=== PATIENT | female | born 1975 | race Caucasian/White ===

== ENCOUNTER 2017-08-25 15:24 | Inpatient (IN) | payer OTHER ==
[~2017-08-25] VITALS: Ht 172.7 cm; Wt 62.6 kg
[~2017-08-25 15:24] MED LIST: ATIVAN1 MG PO; L-METHYLFOLATE15 M1 PO; SEROQUEL200 MG PO
[2017-08-25] MEDS ORDERED: GRALISE600 MG PO (17:12)
[2017-08-25] MEDS ORDERED: ADDERALL 20 MG20 MG PO (17:12)
[2017-08-26] MEDS ORDERED: LAMICTAL200 MG PO (08:26)
[2017-08-26] MEDS ORDERED: ZYPREXA5 MG PO (08:27)
[2017-08-26] MEDS ORDERED: TRAMADOL HCL50 MG PO (08:28)
--- NOTE | 2017-08-26 08:42 | NUR ---
08/25/17 1715 MET WITH PATIENT AND GUEST TODAY FOR PREOP VISIT. PATIENT WILL BE HAVING SURGERY FOR A TOTAL LEFT KNEE REPLACEMENT ON 09/06/17. PATIENT APPEARS VERY ANXIOUS DURING PREOP VISIT. SHE WOULD LIKE DC PLANNING TO MAKE ARRANGEMENTS FOR A FRONT WHEELED WALKER WHILE SHE IS IN THE HOSPITAL. SHE WILL LOOK INTO A SHOWER CHAIR/BENCH AND HAND HELD SHOWER HEAD FOR HER TUB/SHOWER COMBINATION. PATIENT IS UNSURE OF HER PLANS FOR DC. HER HOME HAS 2 STEPS INTO IT AND MULTIPLE STEPS INSIDE TO THE UPPER LEVEL. SHE REPORTS EVERYTHING SHE NEEDS IS ON THE MAIN LEVEL OF THE HOME EXCEPT HER BEDROOM. A GENTLEMAN NAMED CARISSA ACCOMPANIED HER TODAY AND SAID HE WAS PLANNING ON STAYING WITH HER AND TAKING HER TO HER PHYSICAL THERAPY APPOINTMENTS. SHE WAS INSTRUCTED TO CONTACT DR DURAND OFFICE AND ASK ABOUT IF SHE IS TO HAVE A PREOP PHYSICAL THERAPY APPOINTMENT AND ATTEND THE JOINT BOOTCAMP.
[2017-09-06] MEDS ORDERED: LAMICTAL200 MG PO (11:28)
--- NOTE | 2017-09-06 13:23 | NUR ---
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 PARENTS WITH HER, SEEM VERY SUPPORTIVE. PT REQUESTED PRAYER, WILL FOLLOW NEEDED
--- NOTE | 2017-09-06 13:25 | NUR ---
09/06/17 1325 Verenice Elmore 1248 RESP EVEN AND UNLABORED, PT SLEEPING, MAINTAINING AIRWAY ON 6L VIA MASK. 1305 PT WOKE UP, O2 REMOVED. PT REPORTS "LITTLE BIT OF PAIN." DENIENS NAUSEA. 1320 PT SLEEPING, SB NOTED WITH ARRHYTHMIA.
--- NOTE | 2017-09-06 14:50 | NUR ---
PATIENT TO FLOOR FROM PACU. AWAKE, ALERT AND ORIENTED. PATIENT DENIES NAUSEA AT THIS TIME AND REPORT 5/10 ON THE LEFT KNEE. DRESSING ON LEFT KNEE D/C/I. CRYO CUFF ON, HEEL PROTECTOR AND HOLLY HOSE IN PLACE. PATIENT REPORTS BEING HUNGRY, CLEAR LIQUID PROVIDED. PATIENT TOLERATED WELL. PATIENT EXPRESSED INTEREST TO ADVANCE DIET. CHICKEN NODDLE SOUP ORDER. PATIENT WAS MEDICATED FOR PAIN. SCHEDULE ZOFRAN ADMINISTERED. IV SITE PATENT AND FLUID INFUSING. PATIENT REPORT MUNBNESS AND TINGLING IN BOTH LOWER EXTREMITIES, BUT ABLE TO FEEL WHEN TOUCHING. PERIPHERAL PULSE PALPABLE AND SKIN IN BLE PINK, GOOD CAP REFILL.CALL LIGHT & PERSONAL BELONGING WITHIN REACH. WILL CONTINUE TO MONITOR.
--- NOTE | 2017-09-06 15:18 | NUR ---
PATIENT RESTING IN BED. VITALS ARE STABLE, PULSE NIECY 46-49, AND NON-SYMPTOMATIC WITH THIS. INTRODUCED SELF CHARGE NURSE AND ASKED IF PATIENT HAD NEEDS. PATIENT DENIES NEEDS AT THIS TIME. FAMILY IN ROOM WITH PATIENT.
--- NOTE | 2017-09-06 15:42 | NUR ---
INTRODUCED SELF TO PATIENT CHARGE NURSE. PATIENT DENIES ANY NEEDS AT THIS TIME, IS A FRESH POST OP THIS AFTERNOON.
--- NOTE | 2017-09-06 16:10 | NUR ---
PATIENT WAS UP WALKING WITH PHYSICAL THERAPIST IN THE HALLWAY. TOLERATED WELL. PATIENT WAS ASSISTED TO BEDSIDE COMMODE AND WAS NOT TO VOID PATIENT REPORT PAIN 7/10 KNEE PAIN AND SHARP PAIN AND PRESSURE IN THE SUPRAPUBIC REGION. PATIENT WAS BLADDER SCANNED AND HAD MORE 999ML OF URINE IN THE BLADDER. MCNAMARA WAS PLACED PER MD ORDER. 1750ML OF URINE OUT UPON INSERTION. PATIENT REPORTED RELIEF OF PAIN AND PRESSURE AFTER DRAINING THE BLADDER. PATIENT TOLERATE FOOD WELL, DENIED ANY NAUSEA. CALL LIGHT AND PERSONAL BELONGING WITHIN REACH.
--- NOTE | 2017-09-06 16:50 | NUR ---
patient sitting up in bed. fresh ice water given. no other needs at this time.
[2017-09-06] MEDS ORDERED: B-122500 MCG PO (17:34)
[2017-09-06] MEDS ORDERED: L-METHYLFOLATE15 M1 PO (17:35)
--- NOTE | 2017-09-06 17:52 | NUR ---
PATIENT RESTING IN BED WITH EYES CLOSE. FATHER IN ROOM. FRESH ICE WATER GIVEN. ICE IN CRYO. CALL BUTTON IN REACH. NO OTHER NEEDS AT THIS TIME.
--- NOTE | 2017-09-06 18:41 | NUR ---
PATIENT HAD DONE WELL. WAS UP AMBULATING WITH PHISICAL THERAPIST ONCE. PAIN CONTROL WITH DILAUDID AND TORADOL. PATIENT TOLERATED FOOD WELL AND ADVANCED TO REGULAR DIET. MCNAMARA WAS PLACED DUE TO URINARY RETENTION. CRYO CUFF TO LEFT KNEE. HOLLY HOSE AND HEEL PROTECTOR IN PLACE. IV ABX AND FLUID INFUSING WELL. DRESSING ON THE LEFT KNEE D/C/I JODI WRAP. CMS INTACT, PATIENT STILL REPORTED MILD NUMBNESS AND TINGLING.
--- NOTE | 2017-09-06 19:47 | NUR ---
PATIENT CALLED AND REQUESTED PAIN MED FOR 7/10 LEFT KNEE PAIN. PATIENT WAS MEDICATED. DENIES NAUSEA. IV FLUID INFUSING. CALL LIGHT WITHIN REACH.
--- NOTE | 2017-09-06 20:08 | NUR ---
RECEIVED REPORT FROM DAY SHIFT RN. PATIENT IS RESTING IN BED WATCHING TV. PATIENT RATES PAIN AT A 4/10. PATIENT DENIES ANY NAUSEA. PATIENT HAS FAMILY IN THE ROOM. PATIENT DENIES ANY NEEDS AT THIS TIME. CALL LIGHT IN REACH.
--- NOTE | 2017-09-06 20:35 | NUR ---
PATIENT ASSESMENT COMPLETED. PATIENT HAS BEEN ADVANCED TO A REG DIET AND IS TOLERATING IT WELL. NO NAUSEA NOTED. PATIENT HAS A PULSE OX IN PLACE AND IS ON RA. PULSE OX READINGS ARE WNL. PATIENT HAD A MCNAMARA PLACED FOR RETENTION ON DAY SHIFT. PATIENTS OUTPUT IS CONCENTRATED AND OUTPUT IS QS. PATIENT HAS HEEL PROTECTOR AND SCDS IN PLACE. PATIENT HAS CRYO APPLIED TO LEFT KNEE, ICE IN CRYO IS REFILLED. PATIENTS DRESSING ON LEFT KNEE IS C/D/I, NO DRAINGE NOTED. PATIENT IS AAOX3. PATIENT HAS SCOPALAMINE PATCH BEHIND RIGHT EAR. PATIENT HAS NO COMMENTS, QUESTIONS, OR CONCERNS AT THIS TIME. PATIENT HAS FAMILY AT THE BEDSIDE. NO FURTHER NEEDS NOTED AT THIS TIME. CALL LIGHT IN REACH.
--- NOTE | 2017-09-06 21:25 | NUR ---
V/S AND I&O TAKEN. NOTICED HR IS LOW IN 45-47 WHEN ASLEEP AND WHEN AWAKE AND TALKING WENT UP TO 77. NURSE NOTIFIED. CHECKED CRYO IS STILL FILLED WITH ICE.
--- NOTE | 2017-09-06 23:55 | NUR ---
PATIENTS 0000 MEDICATIONS GIVEN PER ORDER. PATIENT RATES PAIN AT A 4/10. PATIENT DENIES THE NEED FOR PAIN MEDICATION AT THIS TIME. PATIENT DENIES ANY NAUSEA. PATIENT CONTINUES TO WEAR, SCDS, HEEL PROTECTS, AND CRYO APPLIED TO THE LEFT KNEE. CRYO SUFFICIENT ICE. PATIENT DENIES ANY FURTHER NEEDS. CALL LIGHT IN REACH.
--- NOTE | 2017-09-07 01:39 | NUR ---
PATIENTS SCHEDULED PAIN MEDICATION GIVEN PER ORDER. PATIENT RATES PAIN AT A 4/10. PATIENTS CRYO HAS SUFFICIENT ICE. PATIENT CONTINUES TO WEAR SCDS, HEEL PROTECTORS AND CRYO APPLIED TO LEFT KNEE. NO FURTHER NEEDS AT THIS TIME. CALL LIGHT IN REACH.
--- NOTE | 2017-09-07 09:40 | NUR ---
PATIENT RESTING IN BED WITH EYES CLOSED. MOTHER IN ROOM. PATIENT WOULD LIKE TO TO DO AM CARE LATER. FRESH ICE WATER GIVEN. ICE IN CRYO. CALL BUTTON IN REACH. NO OTHER NEEDS AT THIS TIME.
--- NOTE | 2017-09-07 11:03 | NUR ---
ALL NOTES AND ASSESSMENTS PRIOR TO THIS TIME ARE CHARTED ON THE PAPER CHART. PT UP WALKING IN HALLWAY WITH PHYS. THER. AND MOTHER. PT STATES SHE IS DOING WELL AND RATES PAIN AT A PT STATED TOLERABLE LEVEL OF 6\10.
--- NOTE | 2017-09-07 11:32 | NUR ---
Pt called to say she was painful after phys. ther. administered 2 tabs norco. Rates 7\10. Drainage appears the same as earlier. pt up to restroom.
--- NOTE | 2017-09-07 13:00 | NUR ---
PATIENT TO BATHROOM TO CHAIR WITH STANDBY ASSIST WITH WALKER. ICE IN CRYO. FRESH ICE WATER GIVEN. WARM BLANKET GIVEN. PATIET STATES THAT HER PAIN IS AT A 7. RN NOTIFIED. CALL BUTTON IN REACH. NO OTHER NEEDS AT THIS TIME.
--- NOTE | 2017-09-07 14:32 | NUR ---
PT SITTING UP IN CHAIR. PT STATES LAST DOSE OF PAIN MEDICATION WORKED WELL. AND NOW RATES PAIN 3\10.
--- NOTE | 2017-09-07 14:57 | NUR ---
PT RESTING IN CHAIR, WAITING FOR P.T. HER DAD HAS NOT LEFT HER SIDE! SHE IS ALERT AND ORIENTED. NOT MUCH SLEEP LAST NIGHT-SHE MENTIONED THAT SHE COULD USE A NAP. GOOD VISIT WITH PT AND DAD. TRISH FROM P.T.IN. EXTENDED A BLESSING. I WILL FOLLOW NEEDED
--- NOTE | 2017-09-07 15:49 | NUR ---
WASHED PT HAIR. AND BED BATH
--- NOTE | 2017-09-07 17:43 | NUR ---
PT RESTING WITH EYES CLOSED. DECLINED PAIN MEDICATION ATT.
--- NOTE | 2017-09-07 20:12 | NUR ---
RECEIVED REPORT FROM DAY SHIFT RN. PATIENT ASSISTED TO THE RESTROOM. PATIENT IS A SBA W/FWW. PATIENT IS BACK IN BED COMPLAINING OF NAUSEA. PLACED CALL TO DR. DURAND. RECEIVED VERBAL ORDER, VERIFIED USING THE READBACK METHOD. PATIENT GIVEN PRN NAUSEA MEDICATION PER ORDER. PATIENT DENIES ANY FURTHER NEEDS CALL LIGHT IN REACH.
--- NOTE | 2017-09-07 20:45 | NUR ---
PATIENT ASSESMENT COMPLETED. PATIENT STATES HER NAUSEA HAS SUBSIDED. PATIENT RATES PAIN AT AN 8/10. PATIENT GIVEN SHCEDULED PAIN MEDICATION PER ORDER. PATIENT GIVEN SHCEDULED PAIN MEDICATION PER ORDER. PATIENTS CRYO REFILLED PER ORDER. PATIENTS EVENING MEDICATIONS GIVEN PER ORDER. PATIENT HAS SCDS, HEEL PROTECTORS, AND CRYO IN PLACE. CRYO REFILLED WITH ICE PER ORDER. PATIENTS DRESSSING ON HER LEFT KNEE HAS DRAINAGE NOTED ON THE LOWER END. THE DRAINAGE IS DRY AND IS NOT NEW SINCE RECIEVING REPORT FROM DAY SHIFT RN. PATIENT IS SL AND IV FLUSHES WELL. PATIENT DENIES ANY FURTHER NEEDS AT THIS TIME. CALL LIGHT IS WITHIN REACH.
--- NOTE | 2017-09-07 22:10 | NUR ---
PATIENT IS RESTING IN BED WATCHING TV. PATIENT RATES PAIN AT A 01/27/. PATIENT STATED "IT IS MUCH IMPROVED" PATIENT DENIES THE NEED FOR ANY PAIN MEDICATION AT THIS TIME. PATIENT DENIES ANY NAUSEA. PATIENT DENIES ANY FURTHER NEEDS AT THIS TIME. PATIENT CONTINUES TO WEAR SCDS, HEEL PROTECTORS, CRYO APPLED TO LEFT KNEE. CRYO HAS SUFFICIENT ICE. PATIENT DENIES ANY FURTHER NEEDS, CALL LIGHT IN REACH.
--- NOTE | 2017-09-08 01:30 | NUR ---
PATIENT ASSITED TO THE RESTROOM A SBA W/FWW. PATIENT DOES WELL WITH AMBULATION. PATIENT IS NOW BACK IN BED RESTING. PATIENT HAS SCDS AND HEEL PROTECTORS IN PLACE. PATIENTS CRYO REFILLED. NO NEW DRAINAGE NOTED ON BANDAGE. PATIENTS 0200 MEDICATIONS GIVEN PER ORDER. PATIENT RATES PAIN AT A 6/10. PATIENT RECEIVED SCHEDULED PAIN MEDICATION PER ORDER. PATIENT DENIES ANY NEED FOR PRN PAIN MEDICATION AT THIS TIME. PATIENT DENIES ANY NAUSEA. PATIENT DENIES ANY FURTHE NEEDS CALL LIGHT IN REACH.
--- NOTE | 2017-09-08 02:41 | NUR ---
PATIENTS ICE WATER REFILLED. PATIENT RATES PAIN AT A 4/10. PATIENT DENIES THE NEED FOR ANY PAIN MEDICATION AT THIS TIME. CALL LIGHT IN REACH.
--- NOTE | 2017-09-08 04:21 | NUR ---
AMBULATED PATIENT AROUND NURSE'S STATION X1. PATIENT IS BACK IN BED. CALL LIGHT WITHIN REACH. PATIENT C/O PAIN 6.5/10, NURSE NOTIFIED FOR PAIN MEDS. CRYO REFILLED.
--- NOTE | 2017-09-08 04:53 | NUR ---
PATIENT UP AND AMBULATED X2 LAPS IN THE HALLWAY WITH TAVERN KEEPER. PATIENT COMPLAINS OF FEELING "LIGHT HEADED WITH AMBULATION" PATIENT DENIED FEELING DIZZY. PATIENT COMPLAINS OF 6/10 PAIN IN HER RIGHT KNEEE. PATIENT GIVEN PRN PAIN MEDICATION. PATIENT IS NOW BACK IN BED RESTING SCDS IN PLACE. CRYO APPLIED TO LEFT KNEE. NO NEW DRAINAGE NOTED. NO FURTHER NEEDS CALL LIGHT IN REACH.
--- NOTE | 2017-09-08 05:27 | NUR ---
PATIENT CONTINUES TO RATE PAIN AT A 6/10. PATIENT GIVEN PRN PAIN MEDICATION PER ORDER. PATIENT DENIES ANY NAUSEA. PATIENT DENIES ANY FURTHER NEEDS. CALL LIGHT IN REACH.
--- NOTE | 2017-09-08 05:28 | NUR ---
PATIENT RESTED ON AND OFF THROUGHOUT THE SHIFT. PATIENT IS A SBA W/FWW. PATIENT TOLERATES AMBULATION WELL. PATIENT IS SL AND IV FLUSHES WELL. PATIENT IS ON A REG DIET AND IS TOELRATING IT WELL. PATIENT HAS HEEL PROTECTORS, SCDS, AND TEDHOSE IN PLACE. PAITENT HAS CRYO APPLIED TO LEFT KNEE. PATIENT HAS A MEDIUM AMOUNT OF DRAINAGE NOTED ON THE LOWER ASPECT OF THE DRESSING. NO NEW DRAINGE SINCE START OFF THE SHIFT. PATIENT HAS SCHEDULED PAIN MEDICATION, AND RECIEVED X2 PRN PAIN MEDICATION. PATIENT RECEIVED X1 PRN PAIN MEDICATION PER ORDER. PATIENT IS AAO X3 AND USES CALL LIGHT APPROPRIATELY.
--- NOTE | 2017-09-08 06:38 | NUR ---
PATIENT RATES PAIN AT A 4/10. PATIENT STATED "THAT SECOND PAIN MEDICATION DID THE TRICK" PATIENT DENIES THE NEED FOR FURTHER PAIN MEDICATION AT THIS TIME. PATIENT DENIES ANY NAUSEA. PATIENT IS RSETING IN BED. PATIENT HAS SCDS, TEDHOSE, AND CRYO APPLIED TO LEFT KNEE. CRYO REFILLED WITH ICE PER ORDER. PATIENTS DRESSING HAS DRAINAGE NOTED FROM THE BEGINNING OF THE SHIFT BUT NO NEW DRAINAGE. PATIENT ALSO HAS HEEL PROTECTORS IN PLACE. PATIENT IS SL.
--- NOTE | 2017-09-08 07:10 | NUR ---
REPORT RECEIVED FROM DEE DEE RINCON. PT ASLEEP AT THE TIME OF REPORT. DID NOT WAKE WHILE TALKING
--- NOTE | 2017-09-08 07:53 | NUR ---
PT AWAKE AND TALKING TO FRIEND IN ROOM. EATING BREAKFAST. DOZING OFF AND ON. RATES PAIN 4/10 ADMINISTERED PRN DILAUDID AND MORNING MEDS. PT HOPING TO GO HOME TODAY. DRESSING INTACT AND SAME DRAINAGE YESTERDAY
--- NOTE | 2017-09-08 08:27 | NUR ---
PT UP TO THE SIDE OF THE BED TO EAT BKF, PT ABLE TO MOVE ABOUT IN THE BED WITHOUT ASSISTANCE, SHE IS WEARING CRY-CUFF.
--- NOTE | 2017-09-08 08:49 | NUR ---
CRYO CUFF REFILLED WITH ICE AT THIS TIME. PT HAS NOT ATE MUCH OF HER BKF THIS AM. SHE HAS BEEN SLEEPING. PT DAVID REMAINS AT THE BEDSIDE.
--- NOTE | 2017-09-08 09:27 | OR ---
[facility] [address] [place], [place] [address] Signed DATE OF OPERATION: 09/06/2017 SURGEON: Sherri Wallace MD PREOPERATIVE DIAGNOSIS: Posttraumatic degenerative joint disease, left knee. POSTOPERATIVE DIAGNOSIS: Posttraumatic degenerative joint disease, left knee. PROCEDURES PERFORMED: 1. Left total knee arthroplasty with computer navigation. 2. Hardware removal, deep. SALES PROJECT ENGINEER: SMILEY Dorsey was present for the entire surgery and was critical for positioning, retraction, and wound closure. ANESTHESIA: Spinal with sedation. TOURNIQUET TIME: 80 minutes. IMPLANTS: Advance Triathlon size 4 with an 11 mm insert and a 38 mm patella. Two screws were removed from the tibia. BRIEF HISTORY: Michell is a 41-year-old female with several traumas to her knee including a patellar fracture and several injuries resulting in ACL reconstruction. She has had multiple arthroscopies on top of that. Risks, benefits, and alternatives of operative treatment were discussed with her and she elected to proceed. DESCRIPTION OF PROCEDURE: Once consent was obtained, she was taken to the operating room. After adequate anesthesia, she was placed on operating table. All downside pressure points well padded. Hip bump was placed. The left leg was placed in well-padded proximal thigh tourniquet. Electronically Signed By: SHERRI WALLACE MD 09/08/17 0927 PATIENT NAME: MICHELL YOUNG OPERATIVE REPORT DATE OF : 73 PHYSICIAN: SHERRI WALLACE MD REPORT #: [id number] REPORT IS CONFIDENTIAL AND NOT TO BE RELEASED WITHOUT AUTHORIZATION [facility] [address] [place], [place] [address] Signed The leg was prepped and draped in a standard sterile fashion and exsanguinated using Esmarch bandage. Tourniquet inflated to 250 mmHg. Her prior incision from the patella and tibial tuberosity was incised longitudinally and extended proximally about 3 inches. The subcutaneous tissue was incised. Median parapatellar arthrotomy was performed. The infrapatellar fat pad was excised. The MCL was elevated, sleeve around the posterior medial corner. The medial meniscus was absent. Lateral meniscus was torn and was resected. The ACL was torn. The knee was flexed. Navigation guide was pinned to the distal femur and the femur was registered with the computer. The distal femoral cutting guide was then pinned and distal femoral cut was made. Osteophytes were removed as we went. The distal femur sized to a 4. The AP cutting block was then pinned in line with the epicondylar axis. Anterior, posterior, chamfer cuts were made. The attention was turned to proximal tibia. The navigation guide was pinned to the proximal tibia and the tibia was registered with the computer. The cutting block was then set per the computer and the cut was made with care taken to protect the patellar tendon and MCL. The bone was removed as were any meniscal remnants. Posterior osteophytes were removed off the femur and posterior release was performed. Flexion-extension gaps were then sized and found to be symmetric at 11 mm. The trials were then positioned. The knee taken through range of motion and found to be stable. The patella was cut, sized and drilled for 38 mm patella. The screw in the patella was not found. The tibia was completed next using the keel punch. However, the 2 screws in the tibia were in the way we did have to remove those. A little bit of bone had to be resected to remove the blacktop paver operator. The bone was then pulse lavaged and packed with a dry Ray-Tatiana. Cement was mixed and reached proper consistency, placed on all implants and bone surfaces. Tibia was impacted in position first followed by the polyethylene. All excess cement was removed. The femur was then impacted into position. Again, all excess cement was removed. The knee was extended and excellently loaded. Patella was clamped into position again, any remaining cement was removed. The cement was allowed to harden for 12 minutes and then the knee was flexed and the remaining cement was removed. The periarticular soft tissues were injected with ropivacaine Toradol mixture. The knee was pulse lavaged at intervals throughout the procedure. A total of 3 L antibiotic irrigation was used. The arthrotomy was then closed using #2 Stratafix and the subcutaneous tissue then one Stratafix, skin with stefan and dressed with Mepilex Ag dressing. ABDs were placed and the knee was wrapped with an Wagner wrap. She was awakened and taken to recovery room in satisfactory condition. All sponge, needle, and instrument counts were correct. Sherri Wallace MD Electronically Signed By: SHERRI WALLACE MD 09/08/17 0927 PATIENT NAME: MICHELL YOUNG OPERATIVE REPORT DATE OF : 73 PHYSICIAN: SHERRI WALLACE MD REPORT #: [id number] REPORT IS CONFIDENTIAL AND NOT TO BE RELEASED WITHOUT AUTHORIZATION [address] [address] Signed [facility] /[id number] Electronically Signed By: SHERRI WALLACE MD 09/08/17 0927 PATIENT NAME: MICHELL YOUNG OPERATIVE REPORT DATE OF : 73 PHYSICIAN: SHERRI WALLACE MD REPORT #: [id number] REPORT IS CONFIDENTIAL AND NOT TO BE RELEASED WITHOUT AUTHORIZATION
[2017-09-08] MEDS ORDERED: XARELTO10 MG PO (09:31)
[2017-09-08] MEDS ORDERED: HYDROCODON-ACE1 EA11 PO (09:31)
[2017-09-08] MEDS ORDERED: NUCYNTA50 MG PO (09:32)
[2017-09-08] MEDS ORDERED: MILK OF MA400 MG/5 M PO (09:33)
--- NOTE | 2017-09-08 10:31 | NUR ---
GROUND WOOD SUPERVISOR CALLED FOR PT IN OFFICE. PT WAS HAVING INCREASED PAIN ON THE EXERCISE BIKE. ADMINISTERED 2 NORCO. PT STATES PAIN WAS WELL CONTROLLED 4\10 PRIOR TO BENDING IT. A
--- NOTE | 2017-09-08 11:34 | NUR ---
PT UP TO RESTROOM. EDUCATION GIVEN. PT SLEEPY SO SIGNIFICANT OTHER WAS GIVEN MOST OF EDUCATION AND INSTRUCTIONS. DRESSED WOUND AGAIN AND PROVIDED INSTRUCTIONS ON REDRESSING. PT GIVEN SCRIPTS. PT VERBALIZED UNDERSTANDING. HAD SHOWER AND REDRESSED. PAIN WELL CONTROLLED ATT.
--- NOTE | 2017-09-08 14:07 | NUR ---
PT PLANNING ON BEING DC'D TODAY. SHE SEEMS TO HAVE DONE WELL WITH P.T. SHE LIVES IN [facility], AND IS CONCERNED THAT SHE IS GOING TO HAVE PT. THERE. CONFIRMED THAT IS SET, GAVE BLESSING
--- NOTE | 2017-09-15 08:19 | DS ---
[facility] [address] [place], [place] [address] Signed ADMISSION DATE: 09/06/2017 DISCHARGE DATE: 09/08/2017 ADMISSION DIAGNOSIS: Posttraumatic degenerative joint disease, left knee. POSTOPERATIVE DIAGNOSIS: Posttraumatic degenerative joint disease, left knee. PROCEDURE PERFORMED DURING THIS HOSPITALIZATION: Left total knee arthroplasty. BRIEF HISTORY: Delvin is a 41-year-old female with several fractures in her knee. She had undergone ACL reconstruction as well and developed subsequent degenerative changes. Risks and benefits of the operative treatment were discussed with her and she elected to proceed. DESCRIPTION OF PROCEDURE: Once consent was obtained, she was taken to the operating room. After adequate anesthesia, she underwent the above-named procedure. She tolerated this well. She was taken to the recovery room and subsequently to the orthopedic floor. She was placed on oral pain medications of tapentadol 100 mg q.6 hours and [place]. She did well with pain control. She did have some nausea when she got up. She had no emesis, however. She was able to perform physical therapy quite well. She was able to go up and down the stairs, up and down the hallway by the day of discharge. She had a good safety profile throughout. DVT prophylaxis was provided using SCDs, TEDs, and Xarelto 10 mg p.o. daily. She will be discharged to home with the above medications and outpatient physical therapy. She will follow up with me in 7 to 10 days or sooner should she have problems. Drew Wallace MD BA/MODL Electronically Signed By: DREW WALLACE MD 09/15/17 0819 PATIENT NAME: DELVIN YOUNG DISCHARGE SUMMARY DATE OF : 73 PHYSICIAN: DREW WALLACE MD REPORT #: [id number] REPORT IS CONFIDENTIAL AND NOT TO BE RELEASED WITHOUT AUTHORIZATION [address] [place], [place] [address] Signed /[id number] Electronically Signed By: DREW WALLACE MD 09/15/17 0819 PATIENT NAME: DELVIN YOUNG DISCHARGE SUMMARY DATE OF : 73 PHYSICIAN: DREW WALLACE MD REPORT #: [id number] REPORT IS CONFIDENTIAL AND NOT TO BE RELEASED WITHOUT AUTHORIZATION
== END 2017-09-08 11:40 | disposition home or self-care (01) | DRG 470 ==
LOC: DSVR 09-06 06:55 → MS 09-06 09:15
PROVIDERS: ADMIT Specialist
PROC: 0SRD0J9 Replacement of Left Knee Joint with Synthetic Substitute, Cemented, Open Approach (ICD-10-PCS; principal; 2017-09-06 09:30)
DX: M17.12 Unilateral primary osteoarthritis, left knee (principal); F31.9 Bipolar disorder, unspecified; F41.9 Anxiety disorder, unspecified
CPT/HCPCS: 01402; 36415; 51798; 64447; 64450; 76942; 80048; 85025; 97110; 97116; 97161; C1713; C1776; J0690; J1100; J1170; J1885; J2250; J2274; J2405; J2704; J2795; J3010; J7120

== ENCOUNTER 2022-12-11 07:20 | Day surgery (SDC) | payer OTHER ==
[~2022-12-11] VITALS: Ht 172.7 cm; Wt 66.0 kg
--- NOTE | ~2022-12-11 | OR ---
[facility] [address] [place], [place] [address] Draft DATE OF OPERATION: 12/11/2022 SURGEON: Sherri Wallace MD PREOPERATIVE DIAGNOSIS: Carpal tunnel syndrome, right. POSTOPERATIVE DIAGNOSIS: Carpal tunnel syndrome, right. PROCEDURE PERFORMED: Carpal tunnel release, right. ECONOMICS TEACHER: None. ANESTHESIA: Steph block. TOURNIQUET TIME: 20 minutes. 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 Nerve conduction studies confirmed carpal tunnel. She wished to proceed with operative intervention. Risks, benefits, and alternatives were discussed at length and she understood and wished to proceed. DESCRIPTION OF PROCEDURE: Once consent was obtained, she was taken to the operating room. After adequate anesthesia, she was left on the day surgery bed with a hand table. The arm was then prepped and draped in a standard sterile fashion. A 1.5 cm incision was made in the distal wrist crease, carried through skin and subcutaneous tissue down to the palmaris longus tendon, which was identified, retracted, and protected. The soft tissue underneath was then dissected off the transverse carpal ligament. The ligament was then transected approximately a centimeter and distally to the distal extent using loupe magnification. This was palpated using a [place] and found to be completely released. The wound was then copiously irrigated with normal saline and closed with 3-0 nylon and injected with 7 mL of 0.25% plain Marcaine. The wound was dressed with bacitracin, Adaptic, 4x8's, and gauze. She tolerated the procedure well. All sponge, needle, and PATIENT NAME: MICHELL YOUNG OPERATIVE REPORT DATE OF : 73 REPORT #: [id number] PHYSICIAN: SHERRI WALLACE MD PCP: MICHELL VALDEZ NP REPORT IS CONFIDENTIAL AND NOT TO BE RELEASED WITHOUT AUTHORIZATION [facility] [address] [place] [address] Draft instrument counts were correct. Sherri Wallace MD BA/KRYSTEN /[id number] Copies: ~ PATIENT NAME: MICHELL YOUNG OPERATIVE REPORT DATE OF : 73 REPORT #: [id number] PHYSICIAN: SHERRI WALLACE MD PCP: MICHELL VALDEZ NP REPORT IS CONFIDENTIAL AND NOT TO BE RELEASED WITHOUT AUTHORIZATION
[~2022-12-11 07:20] MED LIST changes: +ADDERALL 20 MG20 MG PO; +B-12500 MCG PO; +GRALISE600 MG PO; +HYDROCODON-ACE1 EA11 PO; +LAMICTAL200 MG PO; +MILK OF MA400 MG/5 M PO; +NUCYNTA50 MG PO; +TRAMADOL HCL50 MG PO; +XARELTO10 MG PO; +ZYPREXA5 MG PO
[2022-12-11] MEDS ORDERED: HYDROCODON-ACE1 EA10 PO (09:21)
--- NOTE | 2022-12-11 09:27 | NUR ---
12/11/22 0927 Nidia Luther 0991 PATIENT ARRIVES TO PACU UNRESPONSIVE TO PAIN. RESP EVEN AND UNLABORED, SNORING AT TIMES, OCCASIONAL CHIN LIFT, MASK ORIGINALLY OFF ON ARRIVAL, PLACE AT 6 LITERS, SATS 100%.
== END 2022-12-11 10:30 | disposition home or self-care (01) ==
LOC: DS 07:20
PROVIDERS: ATTEND Specialist
PROC: 01N50ZZ Release Median Nerve, Open Approach (ICD-10-PCS; principal; 2022-12-11 09:25)
DX: G56.01 Carpal tunnel syndrome, right upper limb (principal); F41.0 Panic disorder [episodic paroxysmal anxiety]; F32.A Depression, unspecified
CPT/HCPCS: J0690; J2704; J7121